=== PATIENT | female | born 1980 ===

== ENCOUNTER 2016-05-18 18:30 | Emergency (ER) | payer OTHER ==
--- NOTE | 2016-05-18 19:36 | OBHP ---
Datetime: 05/18/2016 19:26 IP Adm Impression: , intrauterine IP Adm Impression Other: nst reactive Admit Comment, IP Provider: chief complaint-nst HPI 35 y/o at 32.4 wga here for nst .Patient diagnosed with iugr today on ultrasound course AMA, gestational diabetes PMH denies PSH denies ONGYN HX Social hx denies tobacco,alcohol or illicit drug use Exam see exam section A/P 35 y/o female at 32.4 wga with iugr and gestational diabetes here for nst.nst reactive -case discussed with mfm-Dr Murrieta who recommended patient to go to [facility] for admission [facility] patient states that she would go to [facility]. Pelvic Type - PN: Adequate Extremities - PN: Normal Abdomen - PN: Normal Back - PN: Normal Lungs - PN: Normal Heart - PN: Normal Neurologic - PN: Normal General - PN: Normal Gestation - Est Wks by US: 32.4 IP Chief Complaint: evaluation FHR Category Provider Fetus A: Category I Genitourinary Exam: Normal DTRs - PN: Normal
== END 2016-05-18 19:31 | disposition home or self-care (01) ==
LOC: C.EROB 18:30
DX: O36.5930 Maternal care for other known or suspected poor fetal growth, third trimester, not applicable or unspecified (principal); O24.419 Gestational diabetes mellitus in pregnancy, unspecified control; Z3A.32 32 weeks gestation of pregnancy

== ENCOUNTER 2016-07-03 05:40 | Inpatient (IN) | payer OTHER ==
[2016-07-03 06:44] VITALS: BMI 37.9
[2016-07-03] MEDS ORDERED: Lactated Ringer's 1,000 ML IV SCH (07:00)
[2016-07-03 07:30] LABS: BASO # 0.1 K/uL (0.0-0.2); BASO % 0.8 % (0.0-2.0); EOS # 0.1 K/uL (0.0-0.7); EOS % 0.9 % (0.0-4.0); HEMATOCRIT 46.8 % (34.0-47.0); LYMPH # 2.3 K/uL (1.0-4.3); LYMPH % 22.3 % (20.0-40.0); MEAN CELL VOLUME 90.9 fL (81.0-99.0); MEAN CORPUSCULAR HEMOGLOBIN 30.7 pg (27.0-31.0); MEAN CORPUSCULAR HGB CONC 33.7 g/dL (33.0-37.0); MEAN PLATELET VOLUME 9.7 fL (7.2-11.7); MONO # 0.7 K/uL (0.0-0.8); MONO % 6.5 % (0.0-10.0); NRBC % 0.1 % (0.0-2.0); RED CELL DISTRIBUTION WIDTH 15.7 % (11.5-14.5); WHITE BLOOD COUNT 10.2 K/uL (4.8-10.8)
--- NOTE | 2016-07-03 07:32 | OBADHP ---
Datetime: 07/03/2016 07:28 Admit Comment, IP Provider: at 39.1weeks her for scheduled c/s for marginal placent previa/iugr , no ctxs, vb, lof,=fm. obhx primi pmhh gdma1,pih med pnv,labetol all nkda psh de soch denies a/p at 39=weeks her for schuled primary c/s admit to l7d npo/ivf labs type and cross antesaia aware cont magdalena ad efm skin antibiotics informed consent taken r/a/b discussed Pelvic Type - PN: Adequate Extremities - PN: Normal Abdomen - PN: Normal Back - PN: Normal Breast - PN: Normal Lungs - PN: Normal Heart - PN: Normal Thyroid - PN: Normal Neurologic - PN: Normal HEENT - PN: Normal General - PN: Normal FHR - Baseline A Provider: 130 Contraction Comments Provider: none Comments, ACOG Physical Exam: gravid,non tender ext no edema,no calf ten IP Hx Assessment: The History has been Reviewed and is Current Vital Signs Provider: Reviewed; Within Normal Limits IP Chief Complaint: Scheduled Section NICHD Variability Prov Fetus A: Moderate 6-25bpm NICHD Accel Fetus A IP Provider: [id number] FHR Category Provider Fetus A: Category I Genitourinary Exam: Normal DTRs - PN: Normal EGA AdmitDate IP: 39.1 IP Adm Impression: Term, intrauterine IP Admit Plan: Admit to unit; Initiate Section protocol Datetime: 05/18/2016 19:26 IP Adm Impression Other: nst reactive Gestation - Est Wks by US: 32.4
[2016-07-03] MEDS ORDERED: Sodium Citrate/Citric Acid 15 ml Sol ONE (07:38)
[2016-07-03] MEDS ORDERED: Oxytocin 20 units in LR 2,000 ML IV ONE (07:39)
[2016-07-03] MEDS ORDERED: cefOXitin IV 2 gm in Dextrose 2 GM/50 ML BAG IVPB ONE (07:40)
[2016-07-03 07:44] LABS: RBC URINE < 1 /hpf (0-3); URINE BILIRUBIN NEGATIVE (NEGATIVE); URINE BLOOD NEGATIVE (NEGATIVE); URINE COLOR Yellow (YELLOW); URINE GLUCOSE (UA) NORMAL (Normal); URINE KETONE NEGATIVE (NEGATIVE); URINE LEUKOCYTE ESTERASE NEG Leu/uL (Negative); URINE PROTEIN NEGATIVE (NEGATIVE); URINE UROBILINOGEN NORMAL mg/dL (0.2-1.0); WBC URINE 1 /hpf (0-5)
[2016-07-03 07:48] LABS: GFR AFRICAN-AMERICAN > 60; GLUCOSE,RANDOM 91 mg/dL (65-105)
[2016-07-03] MEDS: Sodium Citrate/Citric Acid 15 ml Sol PO ONE ×2 (07:49→07:50)
[2016-07-03] MEDS: cefOXitin IV 2 gm in Dextrose 2 GM/50 ML BAG IVPB ONE (07:50)
[2016-07-03] MEDS ORDERED: ePHEDrine 50 mg/ml Inj ONE (07:50)
[2016-07-03] MEDS ORDERED: Phenylephrine 10 mg/ml Inj ONE (07:50)
[2016-07-03] MEDS ORDERED: Morphine 1 mg/ml preservative-free Inj(Duramorph) ONE (07:52)
[2016-07-03] MEDS ORDERED: Oxycodone/Acetaminophen 5/325 mg Tab PO PRN (07:58)
--- NOTE | 2016-07-03 08:00 | PCM.SURG1 ---
Surgeon's Initial Post Op Note - Surgeon's Notes Surgeon: dr barbosa Cloth Trimmer Hand: dr elam Type of Anesthesia: Spinal Anesthesia Administered By: dr boykin Pre-Operative Diagnosis: 36 yr at 39+1weeks marginal placente previa/iugr/ gdma1/pih Operative Findings: see the op reoprt Post-Operative Diagnosis: same Operation Performed: primary section Specimen/Specimens Removed: fetus. placente. cord blood. cord gas Estimated Blood Loss: EBL {In ML}: 700 Blood Products Given: N/A Drains Used: No Drains Post-Op Condition: Good Date of Surgery/Procedure: 07/03/16 Time of Surgery/Procedure: 09:00
[2016-07-03] MEDS ORDERED: DiphenhydrAMINE 50 mg/ml Inj IVP PRN (08:46)
--- NOTE | 2016-07-03 09:01 | OBDS ---
DELIVERY PERSONNEL Delivery Doctor: Rodolfo Hooker MD Scrub Nurse: Mark Clifford OBT Glaze Supervisor: Anusha Calderon RN Anesthesiologist: lucretia MATERNAL INFORMATION Delivery Anesthesia: Spinal Medications in Delivery: pitocin 20 Estimated Blood Loss (ml): 700 Placenta Cultured: No Maternal Complications: Other Other Maternal Complications: iugr/gdm/preeclamcia Provider Comments: vaccum assisted deliverd due to rot position. no com. 9/9 peads presemnt placente to pathology end clean LABOR SUMMARY EDC: 07/09/2016 00:00 No. Babies in Womb: 1 Attempted: No Labor Anesthesia: None LABOR INFORMATION Oxytocin: N/A Group B Beta Strep: Negative Antibiotics # of Doses: 1 Antibiotics Time of Last Dose: 740 Steroids Given: None Reason Steroids Not Administered: Not Applicable MEMBRANES Membranes Rupture Method: Artificial Rupture of Membranes: 07/03/2016 08:21 Length of Rupture (hrs): 0.07 Amniotic Fluid Color: Clear Amniotic Fluid Amount: Moderate Amniotic Fluid Odor: Normal STAGES OF LABOR Stage 3 hrs: 0 Stage 3 min: 1 VAGINAL DELIVERY Episiotomy: None Laceration Extension: N/A Laceration Type: None CSECTION DELIVERY Primary Indication: pc/s Secondary Indication: gdm/pih/iugr CSection Urgency: Elective CSection Incidence: Primary Labor: Labor Elective: Elective CSection Incision: Lower Uterine Transverse BABY A INFORMATION Delivery Date/Time: 07/03/2016 08:25 Method of Delivery: Born in Route : No : N/A Forceps: N/A Vacuum Extraction: Successful Shoulder Dystocia : No SHOULDER DYSTOCIA BABY A Infant Delivery Date/Time: 07/03/2016 08:25 PRESENTATION/POSITION BABY A Presentation: Cephalic Cephalic Presentation: Vertex Vertex Position: Left Occipital Anterior Breech Presentation: N/A PLACENTA INFORMATION BABY A Placenta Delivery Time : 07/03/2016 08:26 Placenta Method of Delivery: Manual Removal Placenta Status: Delivered SCORES BABY A Heart Rate 1 min: >100 bpm Resp Effort 1 min: Good Cry Reflex Irritability 1 min: Cough or Sneeze or Pulls Away Muscle Tone 1 min: Active Motion Color 1 min: Body [place], Extremities Blue Resuscitation Effort 1 min: Tactile Stimulation SCORE 1 MIN: 9 Heart Rate 5 min: >100 bpm Resp Effort 5 min: Good Cry Reflex Irritability 5 min: Cough or Sneeze or Pulls Away Muscle Tone 5 min: Active Motion Color 5 min: Body [place], Extremities Blue SCORE 5 MIN: 9 INFANT INFORMATION BABY A Gestational Age at Delivery: 39.0 Gestational Status: Term Outcome : Liveborn Infant Condition : Stable Infant Sex: Male IDENTIFICATION/MEDS BABY A ID Band Number: [id number] ID Band Location: Left Leg; Left Arm Sensor Applied: Yes Sensor Number: [id number] WEIGHT/LENGTH BABY A Infant Birthweight (gms): 3360 Weight (lb): 7 Weight (oz): 6 Infant Length Inches: 19.50 Infant Length cms: 49.5 CORD INFORMATION BABY A No. Cord Vessels: 3 Nuchal Cord : N/A Cord Blood Taken: Yes Suction: Mouth; Nose ASSESSMENT BABY A Infant Complications: None Physical Findings at Delivery: Within Normal Limits Infant Respirations: Grunting Leveler/ALS Called : Yes Infant Care By: dr ernst Transferred To: [facility]
--- NOTE | 2016-07-03 14:04 | OP ---
PROCEDURE DATE: 07/03/2016 PREOPERATIVE DIAGNOSIS: A 36-year-old 1, para 0 at 39 weeks with a marginal placenta previa, intrauterine growth retardation, gestational diabetes mellitus A1, -induced hypertension. POSTOPERATIVE DIAGNOSIS: A 36-year-old 1, para 0 at 39 weeks with a marginal placenta previa , intrauterine growth retardation, gestational diabetes mellitus A1, -induced hypertension. SURGEON: Rodolfo Hooker MD and Dr. Mcgee, who was present throughout the surgery for retraction, expo sure, and pushing at the time of the delivery. PROCEDURE PERFORMED: Vacuum-assisted primary surgery. COMPLICATIONS: None. ESTIMATED BLOOD LOSS: 700 mL. ANESTHESIA: Spinal. ANESTHESIOLOGIST: Mark Coreas MD. PROCEDURE: After informed consent was obtained, the patient was brought to the operating room, place d on the table where spinal anesthesia was given. When anesthesia was found to be adequate, she was prepped and draped in normal sterile fashion. pushing on the pubic bone, a skin incision was made with a knife, the subcutaneous with a Bovie. The fascia incision was extended on both the sides using curved Chance scissors. The fascia was first at the site of the pubic bone, then at t he site of the umbilicus. Rectus muscle was . The peritoneum was extended. We went into t he abdominal cavity. The bladder blade was placed. Bladder flap was created, the bladder . Then, the lower uterine segment incision was made and extended on both sides using curved Chance scisso rs. Baby was in ROT position. It was tried to deliver, but the head was very deflexed. So the deci lonnie was to use vacuum. Vacuum was used, and head was delivered uncomplicated. Baby delivered in po sition ROT. The cord was clamped and cut. Baby was handed to the awaiting unit leader. Cord gas w as sent. The placenta delivered manually and was sent to pathology. The uterus exteriorized, cleare d of all the clots and debris. Incision was closed using #1 Vicryl in a running locking fashion. Se cond layer closure with the same stitch. Uterus was returned back to abdominal cavity. Gutters were cleared of all the clots and debris . Tubes and ovaries looked normal. After that, the fasci a in running nonlocking fashion. The muscle was closed using in nonlocking fashion. T he fascia was closed fashion. The subcuticular layer with interrupted 2-layer fashion. Skin was closed using nigel. The patient tolerated the procedure well. Laps, sponge, and instruments w ere correct x 2. Rodolfo Hooker MD cc: [id number] TT: 07/03/2016 11:07:59 jn 07/03/2016 11:28:44
[2016-07-03] MEDS: Simethicone 80 mg Chewtab PO SCH ×3 (14:43→22:00)
[2016-07-04 07:58] LABS: HEMATOCRIT 39.3 % (34.0-47.0); MEAN CELL VOLUME 90.8 fL (81.0-99.0); MEAN CORPUSCULAR HEMOGLOBIN 30.5 pg (27.0-31.0); MEAN CORPUSCULAR HGB CONC 33.6 g/dL (33.0-37.0); MEAN PLATELET VOLUME 8.5 fL (7.2-11.7); RED CELL DISTRIBUTION WIDTH 15.8 % (11.5-14.5); WHITE BLOOD COUNT 9.4 K/uL (4.8-10.8)
[2016-07-04] MEDS: Oxycodone/Acetaminophen 5/325 mg Tab PO PRN (08:28)
[2016-07-04] MEDS: Simethicone 80 mg Chewtab PO SCH ×4 (09:34→21:30)
--- NOTE | 2016-07-04 16:55 | OBPPN ---
Datetime: 07/04/2016 16:47 PP Pain Prov: Within normal limits PP Nausea Prov: Denies PP Flatus Prov: Yes PP BM Prov: No PP Breasts Prov: Normal PP Heart Prov: Normal PP Lungs Prov: Normal PP Abdomen/Uterus Prov: Normal PP Lochia Prov: Normal PP Vulva/Perineum Prov: Not Done PP CVA Tenderness Prov: Normal PP Extremities Prov: Normal PP C/S Incision Prov: Normal PP Progress Prov: Normal PP Comments Phys Exam Prov: Skin: warm, dry, intact Abdomen: Obese. Soft. (+) BS. Incision cllean, dry, intac. Fundus firm, mobile, appropriately ten judson, 2 FB above umbilicus. Mild lochia rubra Extremites: no calf tenderness All other systems reviewed and are negative PP Impression Prov: Normal progression PP Plan Prov: Continue present management PP Progress Note Prov: Patient received in chair at approximately 1315 hours, room 450, breastfeedin g.. Ambulating and voiding without difficulty. Denies nausea, vomiting. P.E.: as above. Obese in NAD. Awake, alert, oriented to time, person and place. Pleasant and coope rative. - POD#1 H/H 13.2/39.3 Assessment: POD#1 36 yo P1, S/P primary C/S for marginal placenta praevia, IUGR, GDM. Afebrile, vi eliz signs stable. Returning GI and functions. Clinically stble. Plan: 1) Continue present management 2) Encourage ambulationin the hallway Vital Signs Provider PP: Reviewed; Within Normal Limits
--- NOTE | 2016-07-05 08:24 | OBPPN ---
Datetime: 07/05/2016 08:22 PP Pain Prov: Within normal limits PP Nausea Prov: Denies PP Flatus Prov: Yes PP Abdomen/Uterus Prov: Normal PP Lochia Prov: Normal PP Extremities Prov: Normal PP C/S Incision Prov: Normal PP Comments Phys Exam Prov: fudus below ummblicus ext mild dedma,no calf ten incision clean and dry PP Impression Prov: Normal progression PP Plan Prov: Continue present management PP Progress Note Prov: pt was seen at bed side, pain under control, non/v, tolerating deit, voiding, min lochia, flatus+ pod#2 s/p c/s cont pain management cont post op care encourage ambulation Vital Signs Provider PP: Reviewed; Within Normal Limits
[2016-07-05] MEDS: Simethicone 80 mg Chewtab PO SCH ×4 (10:02→22:54)
[2016-07-05] MEDS: Oxycodone/Acetaminophen 5/325 mg Tab PO PRN ×2 (10:20→17:51)
[2016-07-06 00:04] VITALS: RESP 20
[2016-07-06] MEDS: Oxycodone/Acetaminophen 5/325 mg Tab PO PRN (00:04)
--- NOTE | 2016-07-06 08:46 | OBPPN ---
Datetime: 07/06/2016 08:42 PP Pain Prov: Within normal limits PP Nausea Prov: Denies PP Flatus Prov: Yes PP Heart Prov: Normal PP Lungs Prov: Normal PP Abdomen/Uterus Prov: Normal PP Lochia Prov: Normal PP CVA Tenderness Prov: Normal PP Extremities Prov: Normal PP C/S Incision Prov: Normal PP Progress Prov: Normal PP Impression Prov: Normal progression PP Plan Prov: Discharge PP Progress Note Prov: S-patient states that her pain is well controlled.she is tolerating regular d iet.ambulating and voiding without difficulty.passing faltus O-VSS afebrile Fundus firm and below umbilicus Incision clean, dry and intact Extremities no calf tenderness A/P Patient s/p csection pod 3 doing well -discharge today -follow up in clinic in 1 week for incision check and bp check.patient given bleeding, PIH precaut ions Vital Signs Provider PP: Reviewed; Within Normal Limits
[2016-07-06] MEDS: Simethicone 80 mg Chewtab PO SCH ×3 (09:57→18:14)
[2016-07-06 16:19] VITALS: BP 119/78; PULSE 87; TEMP 97.6; O2SAT 97
--- NOTE | 2016-07-11 12:44 | OBDCSUM ---
Datetime: 07/06/2016 18:32 Discharge Instructions, Provider: Routine instructions given Discharge Diagnosis, Provider: Term Delivered Discharge Comment, Provider: go to er if you have fever, pain, severe pain or heavy bleedidn Discharge Diagnosis Prov Other: s/p csection
== END 2016-07-06 19:30 | disposition home or self-care (01) | DRG 650 ==
LOC: C.4D 05:40 → C.4M 10:30
PROVIDERS: ADMIT Obstetrics & Gynecology; ATTEND Obstetrics & Gynecology
PROC: 10D00Z1 Extraction of Products of Conception, Low, Open Approach (ICD-10-PCS; principal; 2016-07-03)
DX: O24.419 Gestational diabetes mellitus in pregnancy, unspecified control (principal); O44.23 Partial placenta previa NOS or without hemorrhage, third trimester; O13.3 Gestational [pregnancy-induced] hypertension without significant proteinuria, third trimester; Z3A.39 39 weeks gestation of pregnancy; O36.5930 Maternal care for other known or suspected poor fetal growth, third trimester, not applicable or unspecified; O09.523 Supervision of elderly multigravida, third trimester; O99.213 Obesity complicating pregnancy, third trimester